=== PATIENT | male | born 1960 | race Caucasian/White ===

== ENCOUNTER 2017-02-14 11:34 | Emergency (ER) | payer MEDICARE, OTHER ==
[2017-02-14] MEDS ORDERED: Albuterol/Ipratropium 3.0-0.5 MG/3 ML Neb Soln NEB ONE (11:57)
[2017-02-14] MEDS ORDERED: Albuterol/Ipratropium 3.0-0.5 MG/3 ML Neb Soln ONE (11:58)
[2017-02-14] MEDS ORDERED: Sodium Chloride 0.9% 10 ML Syringe FLUSH PRN (12:00)
--- NOTE | 2017-02-14 12:06 | EDM.PDOC ---
ED HPI GENERAL MEDICAL PROBLEM - General Chief Complaint: Respiratory Problem Stated Complaint: SOB Time Seen by Provider: 02/14/17 11:50 Source of Information: Reports: Patient, Family, Old Records History Limitations: Reports: No Limitations - History of Present Illness INITIAL COMMENTS - FREE TEXT/NARRATIVE: 56 yo male with increased hypoxia and mild confusion since last night. Is on home oxygen at 4 liters/min. Family transported via private vehicle without his oxygen even though he has portable oxygen available. Smokes about 1 ppd. No recent fevers. Wondered if his MDI inhalers may be out of med? Has sleep apnea, but has not been using is CPAP, only nasal cannula at night. Onset Date: 02/13/17 Duration: Hour(s):, Getting Worse Location: Reports: Chest Severity: Moderate Improves with: Reports: None Worsens with: Reports: Other (time) Context: Reports: Other (Hx of COPD, still smoking) Associated Symptoms: Reports: Confusion (mild), Cough, Shortness of Breath. 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: Reports: Other (see below) (Use of MDI albuterol without benefit.) - Related Data Allergies Allergy/AdvReac Type Severity Reaction Status Date / Time codeine Allergy Cannot Verified 02/14/17 11:42 Remember Penicillins Allergy Cannot Verified 02/14/17 11:42 Remember Home Meds: Home Meds Albuterol [Ventolin HFA] 2 puff INH Q6HR PRN 11/14/14 [History] Fluticasone/Salmeterol [Advair 250-50] 1 puff INH Q12HR 11/14/14 [History] Furosemide [Furosemide] 20 mg PO DAILY 08/14/16 [History] Past Medical History - Past Surgical History HEENT Surgical History: Reports: Other (See Below) Musculoskeletal Surgical History: Reports: Other (See Below) Social & Family History - Tobacco Use Smoking Status *Q: Current Every Day Smoker Years of Tobacco use: 35 Packs/Tins Daily: 1.5 Used Tobacco, but Quit: No Second Hand Smoke Exposure: Yes - Alcohol Use Days Per Week of Alcohol Use: 7 Number of Drinks Per Day: 10 Total Drinks Per Week: 70 - Recreational Drug Use Recreational Drug Use: No ED ROS GENERAL - Review of Systems Review Of Systems: See Below Constitutional: Reports: No Symptoms HEENT: Reports: No Symptoms Respiratory: Reports: Shortness of Breath, Wheezing, Cough. Denies: Sputum, Hemoptysis Cardiovascular: Reports: Dyspnea on Exertion. Denies: Edema, Lightheadedness Endocrine: Reports: No Symptoms GI/Abdominal: Reports: No Symptoms : Reports: No Symptoms Musculoskeletal: Reports: No Symptoms Skin: Reports: No Symptoms Neurological: Reports: No Symptoms Psychiatric: Reports: Confusion (mild) ED EXAM, GENERAL - Physical Exam Exam: See Below Exam Limited By: No Limitations General Appearance: Alert, WD/WN, No Apparent Distress Eye Exam: Bilateral Eye: Normal Inspection Ears: Normal External Exam, Normal Canal, Hearing Grossly Normal Ear Exam: Bilateral Ear: Auricle Normal, Canal Normal Nose: Normal Inspection, Normal Mucosa, No Blood Throat/Mouth: Normal Inspection, Normal Lips, Normal Oropharynx, Normal Voice, No Airway Compromise Head: Atraumatic, Normocephalic Neck: Normal Inspection Respiratory/Chest: No Respiratory Distress, Lungs Clear, Normal Breath Sounds, No Accessory Muscle Use Cardiovascular: Regular Rate, Rhythm, No Edema GI/Abdominal: Normal Bowel Sounds, Soft, Other (Obese) Back Exam: Normal Inspection Extremities: Normal Inspection, Normal Range of Motion, Non-Tender Neurological: Alert, CN II-XII Intact, No Motor/Sensory Deficits Psychiatric: Normal Affect, Normal Mood Skin Exam: Warm, Dry, Intact, Normal Color Lymphatic: No Adenopathy Course - Vital Signs Text/Narrative:: CXR- Duoneb(partial benefit), albuterol neb, NS IV @ 100 ml/h BiPap-switched later to CPAP due to frequent apnea when he dosed off. ABG's show continued decline, will call in anesthesia for intubation. Solumedrol 125 mg IV, Azithromycin [address] Law, hospitalist at [facility], accepts at 1431h. Last Recorded V/S: Last Vital Signs Temp Pulse 110 H 02/14/17 12:07 Resp BP Pulse Ox 100 02/14/17 12:45 - Orders/Labs/Meds Orders: Active Orders 24 hr Category Date Time Status BIPAP Adult [RT BiPAP/CPAP] [RC] ASDIRECTED Care 02/14/17 12:25 Active RT Aerosol Therapy [RC] ASDIRECTED Care 02/14/17 11:57 Active Chest 1V Frontal [CR] Stat Exams 02/14/17 11:57 Ordered Sodium Chloride 0.9% [Normal Saline] 1,000 ml Med 02/14/17 13:15 Active IV ASDIRECTED Sodium Chloride 0.9% [Saline Flush] Med 02/14/17 12:00 Active 10 ml FLUSH ASDIRECTED PRN Saline Lock Insert [OM.PC] Routine Oth 02/14/17 12:00 Ordered Medication Orders Sodium Chloride (Normal Saline) 1,000 mls @ 100 mls/hr IV ASDIRECTED PIPPA Last Admin: 02/14/17 13:23 Dose: 100 mls/hr Sodium Chloride (Saline Flush) 10 ml FLUSH ASDIRECTED PRN PRN Reason: Keep Vein Open Last Admin: 02/14/17 12:32 Dose: 10 ml Labs: Laboratory Tests 02/14/17 02/14/17 02/14/17 Range/Units 12:15 12:22 12:22 WBC 8.2 (4.5-12.0) X10-3/uL RBC 4.84 (4.30-5.75) x10(6)uL Hgb 11.4 L (11.5-15.5) g/dL Hct 37.4 (30.0-51.3) % MCV 77.3 L (80-96) fL MCH 23.6 L (27.7-33.6) pg MCHC 30.5 L (32.2-35.4) g/dL RDW 17.3 H (11.5-15.5) % Plt Count 250 (125-369) X10(3)uL ABG pH 7.29 L (7.35-7.45) ABG pCO2 98 H* (35-45) mmHg ABG pO2 57 L (83-108) mmHg ABG HCO3 46 H (22-26) mmol/L ABG O2 Saturation 83 L* (96-97) % ABG Base Excess 13.8 H (-2-2) Adrian Test passed O2 Delivery Device Nasal cannula Sodium 128 L (135-145) mmol/L Potassium 4.0 D (3.5-5.3) mmol/L Chloride 80 L* D (100-110) mmol/L Carbon Dioxide 45 H* (23-29) mmol/L BUN 8 D (5-20) mg/dL Creatinine 0.4 L (0.6-1.3) mg/dL Est Cr Clr Drug Dosing TNP Estimated GFR (MDRD) > 60 (>60) BUN/Creatinine Ratio 20.0 (9-20) Glucose 146 H (80-116) mg/dL Calcium 8.7 (8.6-10.2) mg/dL B-Natriuretic Peptide (0-100) pg/mL 02/14/17 02/14/17 Range/Units 12:22 14:05 WBC (4.5-12.0) X10-3/uL RBC (4.30-5.75) x10(6)uL Hgb (11.5-15.5) g/dL Hct (30.0-51.3) % MCV (80-96) fL MCH (27.7-33.6) pg MCHC (32.2-35.4) g/dL RDW (11.5-15.5) % Plt Count (125-369) X10(3)uL ABG pH 7.25 L (7.35-7.45) ABG pCO2 > 100 H* (35-45) mmHg ABG pO2 102 (83-108) mmHg ABG HCO3 45 H (22-26) mmol/L ABG O2 Saturation 96 (96-97) % ABG Base Excess 11.5 H (-2-2) Adrian Test passed O2 Delivery Device Nasal cannula Sodium (135-145) mmol/L Potassium (3.5-5.3) mmol/L Chloride (100-110) mmol/L Carbon Dioxide (23-29) mmol/L BUN (5-20) mg/dL Creatinine (0.6-1.3) mg/dL Est Cr Clr Drug Dosing Estimated GFR (MDRD) (>60) BUN/Creatinine Ratio (9-20) Glucose (80-116) mg/dL Calcium (8.6-10.2) mg/dL B-Natriuretic Peptide 393 H (0-100) pg/mL Meds: Medications Generic Name Dose Route Start Last Admin Trade Name Freq PRN Reason Stop Dose Admin Sodium Chloride 1,000 mls @ 100 mls/hr 02/14/17 13:15 02/14/17 13:23 Normal Saline IV 100 mls/hr ASDIRECTED PIPPA Administration Sodium Chloride 10 ml 02/14/17 12:00 02/14/17 12:32 Saline Flush FLUSH 10 ml ASDIRECTED PRN Administration Keep Vein Open Discontinued Medications Generic Name Dose Route Start Last Admin Trade Name Freq PRN Reason Stop Dose Admin Albuterol 2.5 mg 02/14/17 12:29 02/14/17 12:42 Proventil Neb Soln NEB 02/14/17 12:30 2.5 mg ONETIME ONE Administration Albuterol/Ipratropium 3 ml 02/14/17 11:57 02/14/17 12:03 Duoneb 3.0-0.5 Mg/3 Ml NEB 02/14/17 11:58 Not Given ONETIME ONE Albuterol/Ipratropium Confirm 02/14/17 11:58 02/14/17 12:03 Duoneb 3.0-0.5 Mg/3 Ml Administered 02/14/17 11:59 3 ml Dose Administration 3 ml .ROUTE .STK-MED ONE Methylprednisolone Sodium Succinate 125 mg 02/14/17 12:26 02/14/17 12:32 Solu-Medrol IVPUSH 02/14/17 12:27 125 mg ONETIME ONE Administration Departure - Departure Time of Disposition: 14:50 Disposition: DC/Tfer to Acute Hospital 02 Condition: Poor Clinical Impression: CO2 narcosis, Medical non-compliance COPD (chronic obstructive pulmonary disease) Qualifiers: COPD type: unspecified COPD Qualified Code(s): J44.9 - Chronic obstructive pulmonary disease, unspecified - Discharge Information Referrals: Melonie Abbasi TRAFFIC ADMINISTRATOR [Primary Care Provider] - Forms: ED Department Discharge - My Orders Last 24 Hours: My Active Orders 02/14/17 11:57 RT Aerosol Therapy [RC] ASDIRECTED Chest 1V Frontal [CR] Stat 02/14/17 12:00 Sodium Chloride 0.9% [Saline Flush] 10 ml FLUSH ASDIRECTED PRN Saline Lock Insert [OM.PC] Routine 02/14/17 12:25 BIPAP Adult [RT BiPAP/CPAP] [RC] ASDIRECTED 02/14/17 13:15 Sodium Chloride 0.9% [Normal Saline] 1,000 ml IV ASDIRECTED - Assessment/Plan Last 24 Hours: My Active Orders 02/14/17 11:57 RT Aerosol Therapy [RC] ASDIRECTED Chest 1V Frontal [CR] Stat 02/14/17 12:00 Sodium Chloride 0.9% [Saline Flush] 10 ml FLUSH ASDIRECTED PRN Saline Lock Insert [OM.PC] Routine 02/14/17 12:25 BIPAP Adult [RT BiPAP/CPAP] [RC] ASDIRECTED 02/14/17 13:15 Sodium Chloride 0.9% [Normal Saline] 1,000 ml IV ASDIRECTED
[2017-02-14] MEDS ORDERED: methylPREDNISolone Sodium Succinate 125 MG/2 ML SDV IVPUSH ONE (12:26)
[2017-02-14] MEDS ORDERED: Albuterol 0.083% 2.5 MG/3 ML Neb Soln NEB ONE (12:29)
[2017-02-14] MEDS ORDERED: Sodium Chloride 0.9% 1,000 ML IV SCH (13:15)
[2017-02-14] MEDS ORDERED: Succinylcholine 200 MG/10 ML MDV IV ONE (14:34)
[2017-02-14] MEDS ORDERED: fentaNYL 100 MCG/2 ML SDV IV ONE (14:34)
[2017-02-14] MEDS ORDERED: Midazolam 1 MG/ML 2 ML SDV IV ONE (14:34)
[2017-02-14] MEDS ORDERED: Propofol 200 MG/20 ML SDV IV ONE (14:34)
[2017-02-14] MEDS ORDERED: Rocuronium 50 MG/5 ML Vial IV ONE (14:34)
[2017-02-14] MEDS ORDERED: Azithromycin 500 MG in Sodium Chloride 0.9% 250 ML IV ONE (14:41)
[2017-02-14] MEDS ORDERED: Azithromycin 500 MG Vial ONE ×2 (14:54→14:56)
[2017-02-14 19:20] VITALS: BP 146/95
--- NOTE | 2017-02-15 08:36 | CR ---
INDICATION: Endotracheal tube placement. Short of breath, hypoxia. CHEST: A portable AP supine view of the chest was obtained 02/14/2017 and compared with 08/14/2016, revealing endotracheal tube in satisfactory position and alignment. Its tip is at the level of the aortic arch. The heart is somewhat prominent, emphasized by the supine AP positioning. Lungs appear to be somewhat congested. No definite consolidating pneumonia or definite effusion was seen. However, the study is somewhat incomplete and is supine. IMPRESSION: Adequate position endotracheal tube. MTDD
== END 2017-02-14 15:10 ==
LOC: FB.ED 11:34
DX: J44.9 Chronic obstructive pulmonary disease, unspecified (principal); R06.89 Other abnormalities of breathing; F17.210 Nicotine dependence, cigarettes, uncomplicated; Z91.14 Patient's other noncompliance with medication regimen; Z88.0 Allergy status to penicillin; Z88.5 Allergy status to narcotic agent; Z79.899 Other long term (current) drug therapy
CPT/HCPCS: 31500; 36415; 36600; 51702; 71010; 80048; 82803; 83880; 85027; 94640; 94660; 94664; 96361; 96374; 96375; 99285; J0330; J0456; J2250; J2704; J2930; J3010; J7040; J7050; J7620